=== PATIENT | female | born 1985 | race African-American/Black ===

== ENCOUNTER 2023-04-20 16:18 | Emergency (ER) | payer OTHER, SELFPAY ==
--- NOTE | ~2023-04-20 | XR_ITS ---
EXAMINATION: XR chest 2V DATE: 04/20/2023 19:02 INDICATION: Upper respiratory infection. TECHNIQUE: Frontal and lateral views of the chest were obtained. COMPARISON: CT abdomen and pelvis 04/20/2023 FINDINGS: There is no pneumonia, pleural effusion, or pneumothorax. The heart size is normal. IMPRESSION: 1. No acute cardiopulmonary disease. Reviewed, dictated and finalized at location E.
--- NOTE | ~2023-04-20 | CT_ITS ---
EXAMINATION: CT abdomen pelvis wo con DATE: 04/20/2023 18:54 INDICATION: Hematuria. Frequent urination. TECHNIQUE: Computed tomography (CT) of the abdomen and pelvis was performed without intravenous contr ast. Automated exposure control and iterative reconstruction technique were employed. The dose-length product was 1379.49 mGy-cm. COMPARISON: None. FINDINGS: The visualized portions of the lung bases demonstrate minimal atelectasis. No pleural effus ion. The heart size is normal. No pericardial effusion. The liver, gallbladder, spleen, pancreas, adr enal glands, and kidneys are normal. There is no urolithiasis. There is an intrauterine device in exp ected position. There is a 6.4 cm mass containing fat in right ovary, consistent with a dermoid. Ther e are no dilated loops of bowel. The appendix is normal. There are no pathologically enlarged lymph n odes. There is no free intraperitoneal fluid. There is mild thoracic and lumbar spondylosis. IMPRESSION: 1. No urolithiasis. 2. 6.4 cm dermoid in right ovary. Reviewed, dictated and finalized at location E.
[2023-04-20 16:21] VITALS: BP 139/69; PULSE 102; RESP 20; TEMP 36.7; O2SAT 99
--- NOTE | 2023-04-20 18:08 | ED.HA ---
HPI - Headache General Chief Complaint: Headache Stated Complaint: Migraine Time Seen by Provider: 04/20/23 18:00 History of Present Illness HPI Narrative: Patient is a 37-year-old female here with multiple symptoms. Patient states that she has been having some bilateral flank pain over the last 1 week associated with increased urinary frequency. She notes that at home she has felt chills and hot flashes but has not checked her temperature. She is unsure if she has had a fever. She notes she additionally has been having some vaginal bleeding, has a Mirena and does not usually have a regular menstrual cycle. She additionally endorses diffuse fatigue and body aches as well as a headache. Headache is frontal in nature, not associated with any vision changes. No numbness or weakness in arms or legs. She notes it feels similar to her prior migraines in the past. She has not been taking any medications for this. 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 She has had COVID 4 times in the past, does not feel similar to that right now. She did however began having a cough today. Related Data Allergies Allergy/AdvReac Type Severity Reaction Status Date / Time No Known Allergies Allergy Verified 04/20/23 18:37 Review of Systems Review of Systems: All systems reviewed & are unremarkable except as noted in HPI and below Exam Narrative: GENERAL: Well-appearing, well-nourished, and in no acute distress. HEAD: Normocephalic, atraumatic. EYES: PERRLA and EOMI. ENT: Nares clear. Mucous membranes moist. NECK: Supple. CHEST: Clear to auscultation. No respiratory distress. HEART: Regular rate and rhythm. Normal peripheral pulses. ABDOMEN: Soft, nontender, nondistended. Bilateral CVA tenderness. EXTREMITIES: Normal range of motion. No edema. SKIN: Warm, dry, no rash. NEURO: No focal deficits. Alert and oriented x3. PSYCH: Normal mood and affect. Course Course Emergency Course: Chart review performed. Patient is here with a headache and urinary symptoms. Triage vitals grossly normal aside from a heart rate of 102. Patient seen evaluated, nontoxic appearing. She has multiple viral-like symptoms in addition to URI symptoms and a migraine headache. Will treat migraine with IV fluids, Tylenol, Toradol. Clinician is CT abdomen pelvis to evaluate for stone/pyelonephritis. UA ordered. Basic lab work ordered. Will order COVID-19, flu, influenza. Bedside test ordered which should be performed prior to CT. Lab work and imaging reviewed. WBC 13.1, CMP within normal limits. CRP mildly elevated at 3.0. UA consistent with UTI, 3+ leukocyte esterase, urine WBC, 4+ bacteria. Covid, influenza, RSV negative. negative. CT shows no stone. She does appear to have a 6 cm dermoid ovarian cyst on the right. CXR negative. Given all results, expect patient likely has pyelonephritis. Will give dose of rocephin here. Patient re-evaluated, feeling a bit better after IV fluids and medications. Continues to be nontoxic appearing. Rocephin infusing. Will start on Keflex 4 times daily for 10 days to treat pyelonephritis. The results of pertinent diagnostic studies and exam findings were discussed. Patient already aware of the right ovarian cyst. Will follow it with her OBGYN to see if it has changed in size. The patient?s provisional diagnosis and plan of care were discussed with the patient and present family. The patient and/or present family expressed understanding of the diagnosis and plan. The nurse was instructed to provide written instructions and appropriate follow-up information. The patient understands their need and responsibility to obtain additional follow-up as instructed. The risks of medications administered and prescribed were discussed with the patient and family present. Vital Signs Vital signs: Vital Signs Temperature 98.1 F 04/20/23 16:21 Pulse Rate
[2023-04-20 18:37] LABS: Basophils Absolute Auto 0.1 K/mm3 (0.0-0.1); Basophils Percent Auto 0.4 % (0.2-1.2); Eosinophils Percent Auto 0.2 % (0-4.4); Hematocrit 41.3 % (37.0-47.0); Hemoglobin 13.6 g/dL (12.0-15.0); Immature Granulocyte Absolute 0.03 K/mm3 (0.00-0.031); Immature Granulocyte Percent A 0.2 % (0-0.5); Lymphocytes Absolute Auto 1.88 K/mm3 (0.9-3.2); Lymphocytes Percent Auto 14.4 % (18.3-44.2); Mean Corpuscular HGB Conc 32.9 g/dl (32-36); Mean Corpuscular Hemoglobin 29.8 pg (26-34); Mean Corpuscular Volume 90.4 fl (80-100); Mean Platelet Volume 9.9 fl (7.4-10.4); Monocytes Absolute Auto 1.3 K/mm3 (0.1-0.6); Monocytes Percent Auto 10.2 % (2.6-8.5); Neutrophils Absolute Auto 9.8 K/mm3 (1.3-6.7); Neutrophils Percent Auto 74.6 % (45.5-73.1); Platelet Count Result 275 k/mm3 (150-375); Red Blood Count 4.57 M/mm3 (4.2-5.4); Red Cell Distribution Width 14.1 % (11.5-14.5); White Blood Count 13.1 K/mm3 (4.5-10.0)
[2023-04-20] MEDS: ACETAMINOPHEN 325 MG TABLET 650 MG PO (18:40)
[2023-04-20] MEDS: ONDANSETRON INJ 4 MG/2 ML VIAL IV PUSH (18:40)
[2023-04-20] MEDS: KETOROLAC 30 MG/ML VIAL (*BKC) 15 MG IV PUSH (18:40)
[2023-04-20] MEDS: SODIUM CHLORIDE 0.9% IV 1,000 ML 999 ML IV CONT (18:40)
[2023-04-20 18:41] LABS: Appearance Urine Cloudy (Clear); Bacteria Urine 4+ /hpf; Bilirubin Urine Negative (Negative); Blood Urine 3+ (Negative); Color Urine Yellow (Yellow); Glucose Urine UA Negative (Negative); Ketones Urine Negative (Negative); Leukocyte Esterase Ur 3+ LEU/UL (Negative); Nitrate Urine Negative (Negative); Non Pathogenic Casts 0-2; Protein Urine Negative (Negative); Specific Grav Ur 1.022 (1.001-1.035); Squamous Epithelial Cell Urine Many /hpf (Few); Urobilinogen Urine 0.2 mg/dL (<2.0); WBC Urine 21-50 /hpf; pH Urine 5.5 (5.0-9.0)
[2023-04-20 18:44] VITALS: BP 136/72; PULSE 92; RESP 20; O2SAT 100
--- NOTE | 2023-04-20 18:49 | PC.NURSE ---
pt taken for scans at this time
[2023-04-20 18:54] LABS: Alanine Aminotransferase 29 U/L (6-35); Albumin Level 4.8 g/dL (3.5-5.1); Alkaline Phosphatase 80 U/L (38-126); Anion Gap 9 mmol/L (8-16); Aspartate Amino Transferase 30 U/L (14-36); Bilirubin,Total 0.5 mg/dL (0.2-1.3); Blood Urea Nitrogen 15 mg/dL (7-17); Calcium 10.1 mg/dL (8.4-10.2); Carbon Dioxide 29 mmol/L (22-30); Chloride 101 mmol/L (98-107); Estimated CRCL calculation 144 ml/min; Estimated Glomerular Filt Rate > 60; Glucose 102 mg/dL (65-110); Lipase 72 U/L (23-300); Potassium 3.8 mmol/L (3.4-5.0); Sodium 139 mmol/L (137-145)
[2023-04-20 19:00] LABS: Influenza A QL RT-PCR Negative (Negative); Influenza B QL RT-PCR Negative (Negative); RSV RNA, RT-PCR Negative (Negative); SARS-CoV-2 RNA PCR Negative (Negative)
[2023-04-20 19:00] LABS: Add Urine Microscopic? YES
== END 2023-04-20 20:34 | disposition home or self-care (01) ==
PROVIDERS: Emergency Provider Student in an Organized Health Care Education/Training Program
DX: N12 Tubulo-interstitial nephritis, not specified as acute or chronic (principal); G43.909 Migraine, unspecified, not intractable, without status migrainosus; Z86.16 Personal history of COVID-19; Z20.822 Contact with and (suspected) exposure to COVID-19
CPT/HCPCS: 36415; 71046; 74176; 80053; 81001; 81025; 83690; 85025; 86140; 87086; 87088; 87637; 96361; 96365; 96375; 99284; A9270; J0696; J1885; J2405; J7030

== ENCOUNTER 2023-10-29 13:09 | Emergency (ER) | payer OTHER, SELFPAY ==
--- NOTE | ~2023-10-29 | XR_ITS ---
EXAMINATION: XR chest 2V DATE: 10/29/2023 14:07 INDICATION: Productive cough. TECHNIQUE: Frontal and lateral views of the chest were obtained. COMPARISON: Chest 2 views 04/20/2023 FINDINGS: There is no pneumonia, pleural effusion, or pneumothorax. The heart size is normal. IMPRESSION: 1. No acute cardiopulmonary disease. Reviewed, dictated and finalized at location E.
[2023-10-29 13:11] VITALS: BP 153/90; PULSE 94; RESP 20; TEMP 36.6; O2SAT 100
--- NOTE | 2023-10-29 13:38 | ED.URI ---
HPI - URI/Sore Throat General Chief Complaint: Upper Respiratory Infection Stated Complaint: coughing, green production, back pain Time Seen by Provider: 10/29/23 13:27 Source: patient Mode of arrival: ambulatory Limitations: no limitations History of Present Illness HPI Narrative: Carly is a 38-year-old female patient presenting to the emergency room today with complaints of productive cough for the past 2 days. She reports she is bringing up some green phlegm. States she has had nasal congestion and postnasal drip x1 week. Denies any chest pain or shortness of breath. Does report some kidney pain and urinary frequency. She denies any fever or chills. MD elicited complaint: cough and nasal congestion Related Data Allergies Allergy/AdvReac Type Severity Reaction Status Date / Time No Known Allergies Allergy Verified 10/29/23 13:15 Review of Systems Review of Systems: Pertinent positives per HPI. Patient denies any fever, chills, rash, headache, visual changes, dizziness, cough, shortness of breath, chest pain, palpitations, nausea, vomiting, diarrhea, constipation, abdominal pain. PMFSH Comments At the time of my signature, I reviewed and agree with the nursing past medical, surgical, social, and family history. There is no relevant family history pertinent to the patient complaint. Exam Narrative: General: Well-developed, obese, in no apparent distress Head: Normocephalic, atraumatic Eyes: Pupils equally round and reactive to light bilaterally, EOM intact, sclera and conjunctive clear, no discharge, lids normal Ears: TMs intact and clear, ear canals clear, no drainage, grossly hearing normal. Nose: Nares patent, clear nasal discharge, moderate inflammation, maxilla sinus tenderness. Mouth: Oral pharynx without lesions or masses, good dentition, MMM. Postnasal drip Neck: Supple, trachea midline, no enlargement of anterior or posterior cervical nodes, no thyroid masses or goiter palpable. Cardio: Regular rate and rhythm, s1 and s2 normal, no murmur appreciated. Resp: Clear to auscultation bilaterally, no rhonchi, rales, wheezing or rubs Abdomen: Soft, pliable, bowel sounds present in all quadrants, tender to palpation over the suprapubic bladder, no organomegly, bilateral CVAT tenderness. Course Course Emergency Course: Portions of this record may have been created with voice recognition software. Vital Signs Vital signs: Vital Signs Temperature 36.6 C 10/29/23 13:11 Pulse Rate 94 10/29/23 13:11 Respiratory Rate 20 10/29/23 13:11 Blood Pressure 153/90 H 10/29/23 13:11 Pulse Oximetry 100 10/29/23 13:11 Oxygen Delivery Room Air 10/29/23 13:11 Temperature 36.6 C 10/29/23 13:11 Pulse Rate 94 10/29/23 13:11 Respiratory Rate 20 10/29/23 13:11 Blood Pressure 153/90 H 10/29/23 13:11 Pulse Oximetry 100 10/29/23 13:11 Oxygen Delivery Room Air 10/29/23 13:11 Vital signs reviewed MDM - URI/Sore Throat MDM Narrative Medical decision making narrative: At the time of visit patient is resting comfortably on the exam table. Patient appears to be nontoxic. Labs: UA shows a trace of leukocytes with 3-5 red blood cells and 6-10 white blood cells with rare bacteria. Will send for culture. COVID, flu, RSV testing. COVID testing was positive. Flu and RSV testing was negative. Diagnostics: Chest x-ray shows no acute cardiopulmonary process Plan: Supportive measures were discussed with the patient and they voiced understanding discharge instructions and agrees to treatment plan. Return precautions reviewed Differential Diagnosis Differential diagnosis: Likely upper respiratory infection, otitis media, sinusitis, viral infection, bronchitis, influenza, pharyngitis and other (Pneumonia) Discharge Plan Discharge Clinical Impression: COVID-19 UTI (urinary tract infection) Qualifiers: Urinary tract infection type: acute cystitis Hematuria presence: without
[2023-10-29 14:01] VITALS: BP 114/91; PULSE 78; RESP 18; O2SAT 100
[2023-10-29 14:09] LABS: Appearance Urine Clear (Clear); Bacteria Urine Rare /hpf; Bilirubin Urine Negative (Negative); Blood Urine Negative (Negative); Color Urine Yellow (Yellow); Glucose Urine UA Negative (Negative); Ketones Urine Negative (Negative); Leukocyte Esterase Ur Trace LEU/UL (Negative); Nitrate Urine Negative (Negative); Non Pathogenic Casts 0-2; Protein Urine Negative (Negative); Specific Grav Ur 1.026 (1.001-1.035); Squamous Epithelial Cell Urine Few /hpf (Few)
[2023-10-29 14:16] VITALS: BP 126/80; PULSE 78; RESP 18; O2SAT 100
[2023-10-29 14:17] LABS: Add Urine Microscopic? YES
[2023-10-29 14:39] LABS: Influenza A QL RT-PCR Negative (Negative); Influenza B QL RT-PCR Negative (Negative); RSV RNA, RT-PCR Negative (Negative); SARS-CoV-2 RNA PCR Positive (Negative)
[2023-10-29 15:00] VITALS: BP 120/84; PULSE 77; RESP 16; O2SAT 100
== END 2023-10-29 15:00 | disposition home or self-care (01) ==
PROVIDERS: Student in an Organized Health Care Education/Training Program; Emergency Provider Nurse Practitioner Family; PCP Internal Medicine
DX: U07.1 COVID-19 (principal); N30.00 Acute cystitis without hematuria
CPT/HCPCS: 71046; 81001; 87086; 87088; 87637; 99283